=== PATIENT | male | born 1965 | race Caucasian/White ===

== ENCOUNTER → 2019-10-04 | Outpatient (CLI) | payer OTHER ==
--- NOTE | 2019-10-04 15:25 | US ---
EXAMINATION TYPE: US extremity nonvasc mass RT DATE OF EXAM: 10/04/2019 COMPARISON: NONE CLINICAL HISTORY: R22.42 MASS AND LUMP LOWER RT LIMB. TECHNIQUE/FINDINGS: Patient had an injury to his leg in June at the area of his lump. Patient had varicose veins surgically removed as a child. There are areas of varicose veins superior to multiple shadowing areas that could represent scar tiss ue. IMPRESSION: Numerous areas of shadowing could represent calcifications in the subcutaneous tissues a lthough underlying masses cannot be detected due to extensive overlying shadowing. MRI is recommended of the right lower extremity with contrast. Additionally varicosities are seen of the right lower ex tremity superior to the palpable abnormality.
== END | disposition home or self-care (01) ==
LOC: RADUSWWP 14:02
PROVIDERS: ATTEND Internal Medicine
DX: I83.891 Varicose veins of right lower extremity with other complications (principal)

== ENCOUNTER → 2024-02-06 | Outpatient (CLI) | payer OTHER ==
--- NOTE | 2024-02-06 16:38 | CA ---
Exercise Stress Test Report Name: Santy Muniz Exam Date: 02/06/2024 09:10 Exam Location: [facility] Ht (in): 77 Wt (lb): 245 BSA: 2.44 Ordering Phys: Nathen Berrios MD Referring Phys: Almas Sutherland Technologist: Michael Segovia Age: 58 Gender: M : 1965 Procedure CPT: Indications: E78.5 HYPERLIPIDEMIA, UNSPECIFIED ICD-10 Codes: Patient History: Medications: CRESTOR Meds past 24 hrs: Pretest Chest Pain: STRESS TEST Jam Protocol Exercise Duration (min:sec): 10:[address] Depressions (mm): Angina Score: Gallegos Score: Resting HR (bpm): 84 Peak HR (bpm): 179 Resting BP (mmHg): 158 / 90 Peak BP (mmHg): 220 / 106 MPHR: 160 Target HR: 136 % MPHR: 112 METS: 11.8 Total Dose: Peak Dose: Atropine: Double Product: 42202 BP Response: Stress Termination: Reached target heart rate Stress Symptoms: NO SYMPTOMS Stress Summary: ECG ANALYSIS Resting ECG: Stress ECG: CONCLUSIONS Patient underwent exercise stress EKG with a Jam protocol treadmill stress test. Patient exercised into Stage 3 for a total of 10 minutes reaching a total of 11.8 METS. Patient's maximum heart rate was 179 which represented 111% age-predicted maximum heart rate. Stress EKG findings: At baseline patient's EKG showed normal sinus rhythm, normal axis, minimal J-point elevation, no significant ST depressions. At peak exercise, EKG showed no significant change from baseline. Conclusions: 1. Normal EKG response to exercise without evidence of inducible ischemia. 2. Excellent exercise capacity. Dr. Jonah Feliciano DO (Electronically Signed) Final Date: 06 February 2024 16:37
== END | disposition home or self-care (01) ==
LOC: RADNMMAIN 08:27
PROVIDERS: ATTEND Family Medicine
DX: E78.5 Hyperlipidemia, unspecified (principal)
CPT/HCPCS: 93017